=== PATIENT | male | born 1960 ===

== ENCOUNTER → 2017-06-11 08:00 | Outpatient (CLI) | payer OTHER ==
[~2017-06-11 08:00] MED LIST: LOSARTAN-HCTZ1 EACH PO; METFORMIN HCL500 MG PO
== END | disposition home or self-care (01) ==
LOC: LAB 08:00 → EDSTATUS 06-17 07:00 → CIR.AMB 06-17 07:00
DX: N20.1 Calculus of ureter (principal); Z01.812 Encounter for preprocedural laboratory examination